=== PATIENT | male | born 1975 | race African-American/Black ===

== ENCOUNTER 2016-11-28 12:16 | Day surgery (SDC) | payer OTHER ==
[2016-11-28] MEDS ORDERED: Morphine Sulfate 2 MG/ML SYRINGE ONE (13:22)
[2016-11-28] MEDS ORDERED: Ondansetron HCl/PF 4 MG/2 ML Vial ONE ×2 (13:24→17:13)
[2016-11-28 13:47] LABS: Bilirubin Negative (Negative); Blood, Urine Negative (Negative); Glucose, Urine (Dipstick) Negative (Negative); Ketone, Urine 40 mg/dL (Negative); Nitrite Negative (Negative); Protein, Urine (Dipstick) Negative (Neg-Trace); Urobilinogen 0.2 mg/dL (0.2-1.0)
[2016-11-28 13:48] LABS: #Eosinphils 0.1 thou/uL (0.0-0.7); #Lymphocytes 1.5 thou/uL (1.20-3.40); #Monocytes 0.6 thou/uL (0.11-0.59); #Neutrophils 7.6 thou/uL (1.40-6.50); %Eosinophils 0.5 % (0.0-10.0); %Lymphocytes 15.1 % (21.0-51.0); %Monocytes 5.9 % (0.0-10.0); Hematocrit 49.5 % (42.0-52.0); Mean Platelet Volume 8.7 fL (7.4-10.4); Red Blood Cell (RBC) Count 5.58 mill/uL (4.70-6.10); White Blood Cell (WBC) Count 9.7 thou/uL (4.8-10.8)
[2016-11-28] MEDS ORDERED: ISOVUE-370 76%-LOCM 1 ML ONE (13:53)
--- NOTE | 2016-11-28 14:02 | CT ---
CT ABDOMEN AND PELVIS WITH IV CONTRAST: 11/28/2016 HISTORY: Abdominal distention and constipation. Epigastric pain. COMPARISON: 01/02/2007 FINDINGS: There is a wedge-shaped parenchymal density seen at the right lung base, which measures approximatel y 60 mm x 9 mm. This could be related to either atelectasis or a focal area of pneumonitis. The gallbladder is mildly distended, and there is suggestion of gallbladder edema or adjacent perich olecystic fluid. Adjacent to the gallbladder, there do appear to be mild inflammatory changes. The liver, spleen, pancreas, bilateral adrenal glands, and left kidney demonstrate a normal CT appea terrie. There are a few linear hypodensities seen within the mid portion of the right kidney, likely related to areas of mild scarring. The urinary bladder is normal in appearance. Surgical clips are seen in the right lower quadrant. There is a small amount of free fluid in the pelvis, which is abnormal in a male patient. IMPRESSION: 1. Mild distention of the gallbladder with suggestion of a tiny amount of pericholecystic fluid, an d there is also mild increased density in the gallbladder, which may be related to a gallbladder tomasz led with sludge and/or gallbladder calculi. There are adjacent minimal inflammatory changes. In th e correct clinical scenario, findings could be related to cholecystitis. 2. Linear areas of scarring in the right kidney. 3. Wedge shaped parenchymal density, right lung base, which could be related to focal area of atele ctasis or pneumonitis. 4. Right upper quadrant ultrasound may be helpful for further evaluation of the gallbladder. POS: DARYA
[2016-11-28 14:19] LABS: ALT (SGPT) 14 U/L (8-55); AST (SGOT) 16 U/L (5-34); Alkaline Phosphatase 59 U/L (40-150); Anion Gap 16 mmol/L (10-20); BUN (Urea Nitrogen) 8 mg/dL (8.9-20.6); Bilirubin, Total 0.8 mg/dL (0.2-1.2); Calc. Creatinine Clearance 0 mL/min (70-130); Calcium 9.1 mg/dL (7.8-10.44); Carbon Dioxide 22 mmol/L (22-29); Chloride 101 mmol/L (98-107); Estimated GFR-MDRD Greater than 90; Globulin 3.8 g/dL (2.4-3.5); Lipase 13 U/L (8-78); Protein, Total 8.1 g/dL (6.0-8.3)
[2016-11-28] MEDS ORDERED: metroNIDAZOLE 500 MG/100 ML BAG ONE (15:03)
--- NOTE | 2016-11-28 15:27 | ULT ---
ULTRASOUND GALLBLADDER RIGHT UPPER QUADRANT: HISTORY: Right upper quadrant pain. Abnormal CT examination. COMPARISON: CT abdomen and pelvis 11/28/16. FINDINGS: There is abnormal wall thickening in the gallbladder measuring up to 1.2 cm. Sonographic Chavez's s ign is positive. There is inflammation in the surrounding fat. Hepatic echotexture is otherwise normal. Main portable vein is patent with antegrade flow. The com mon duct measures 4 mm. There is internal cholelithiasis. The right kidney measures 10.7 x 5.6 x 6.7 cm. IMPRESSION: Ultrasonographic evidence of acute cholecystitis. Ordering provider, Lynne Beard, notified of findings via telephone at 3:12 p.m. CODE CR POS: DARYA
[2016-11-28] MEDS ORDERED: Lidocaine 2% w/Epinephrine 1:200K 20 ML VIAL ONE (16:14)
[2016-11-28] MEDS ORDERED: Bupivacaine 0.25% HCL 30 ML VIAL ONE (16:14)
[2016-11-28] MEDS ORDERED: Midazolam HCl 2 mg/2 ml Vial ONE (16:47)
[2016-11-28] MEDS ORDERED: Fentanyl 250 MCG/5 ML VIAL ONE (16:47)
[2016-11-28] MEDS ORDERED: Ketorolac Tromethamine 30 MG/ML VIAL ONE (17:13)
[2016-11-28] MEDS ORDERED: Glycopyrrolate 0.2 MG/ML 5 ML SYRINGE ONE (17:13)
[2016-11-28] MEDS ORDERED: Lidocaine 2% PF 10 ML AMP (For Epidural Use) ONE (17:13)
[2016-11-28] MEDS ORDERED: PHENYLEPHRINE-NS 100 MCG/ML 10 ML SYRINGE ONE (17:13)
[2016-11-28] MEDS ORDERED: Propofol 200 MG/20 ML VIAL ONE (17:13)
[2016-11-28] MEDS ORDERED: Promethazine HCl 25 MG/ML VIAL SLOW IVP PRN (19:01)
[2016-11-28] MEDS ORDERED: Ondansetron HCl/PF 4 MG/2 ML Vial IVP PRN (19:01)
[2016-11-28] MEDS ORDERED: Promethazine HCl 25 MG/ML VIAL IM PRN (19:01)
--- NOTE | 2016-11-29 20:35 | PDOC.OP ---
Operative Note - Operative Note Operative Note: PROCEDURE: Laparoscopic cholecystectomy SURGEON: Abby Silverman M.D. DATE OF PROCEDURE: 11/28/2016 PREOPERATIVE DIAGNOSIS: Cholelithiasis and cholecystitis POSTOPERATIVE DIAGNOSIS: Cholelithiasis and cholecystitis HISTORY: Patient with several days of persistent epigastric and right upper quadrant pain and findings of cholelithiasis and acute cholecystitis on imaging. , Bile duct was normal caliber and LFTs were normal. Recommendation was made to proceed with laparoscopic cholecystectomy for symptomatic relief. FINDINGS: Distended thick-walled acutely inflamed gallbladder containing multiple stones. Small caliber cystic duct. PROCEDURE IN DETAIL: After informed consent was obtained and appropriate preoperative antibiotics were administered, the patient was taken to the operating room and placed in the supine position and general endotracheal anesthesia was administered. The stomach was decompressed with an OG tube and the abdomen was prepped and draped in standard sterile fashion. Local anesthesia was infused to the skin and subcutaneous tissues at the umbilical level. A transverse skin incision was made. The fascia was elevated and a Veress needle was placed into the abdominal cavity without difficulty. Opening pressure was less than 5 and carbon dioxide gas easily insufflated to an intra- abdominal pressure of 15, which the patient tolerated well. The Veress needle was withdrawn and a [place] port advanced under direct vision. The abdominal cavity was carefully examined. There was no evidence of Veress needle or of trocar injury. Local anesthesia was infused to the skin and subcutaneous tissues at the epigastric, right upper quadrant, and right lateral abdominal sites and trocars were placed under direct vision of the laparoscope. The fundus of the gallbladder was edematous and thick and too distended to grasp. The gallbladder was aspirated with removal of 20 mL's of bile following which the fundus was soft enough to grasp and retract superiorly. The infundibulum was grasped and retracted laterally, also with some difficulty due to the thick- walled nature of the gallbladder wall. The serosa was stripped inferiorly at the level of the neck of the gallbladder exposing the cystic duct and artery which were traced clearly to their insertion in the gallbladder. The cystic duct was very small caliber but no stones were palpable within the cystic duct. Critical view of safety was obtained and the cystic duct and artery were clipped and divided between clips. The gallbladder was then dissected free of the gallbladder bed using hook electrocautery. During this process, the gallbladder was entered and some bile spilled as well as some small gallstones but these were able to be retrieved. Prior to complete removal of the gallbladder from the gallbladder bed, the area of the cystic duct and artery stumps was examined. The clips were in good position completely across these structures and there was no bleeding and no leakage of bile. The gallbladder was then placed into an EndoCatch bag and drawn out through the epigastric incision. This required dilating the epigastric fascial incision and extending the skin incision to allow the thickened gallbladder wall to be drawn out through the epigastric incision. In addition multiple small stones and the remainder of the bile within the gallbladder were also suctioned out to allow the gallbladder to be removed. The epigastric trocar was replaced and the operative site easily irrigated to clear. There was no significant bleeding. The epigastric trocar was removed and the fascia closed under direct laparoscopic vision with a 0 Vicryl suture on a GraNee needle in a figure-of- eight manner with excellent technical result. The right upper quadrant and right lateral abdominal trocars were removed and hemostasis verified. Carbon dioxide gas was allowed to desufflate through the umbilical trocar which was then removed. The skin incisions were closed with 4-0 subcuticular Monocryl sutures and Dermabond dressings were placed. The patient was extubated and taken to the recovery room in good condition. There were no complications. ESTIMATED BLOOD LOSS: Minimal. SPECIMEN : Gallbladder and contents.
== END 2016-11-28 20:27 | disposition home or self-care (01) ==
LOC: ERS 12:16 → SDC 15:35
PROVIDERS: ATTEND Surgery
PROC: 0FT44ZZ Resection of Gallbladder, Percutaneous Endoscopic Approach (ICD-10-PCS; principal; 2016-11-28)
DX: K80.00 Calculus of gallbladder with acute cholecystitis without obstruction (principal); I10 Essential (primary) hypertension
CPT/HCPCS: 36415; 74177; 76705; 83690; 88304; J0744; J1885; J2001; J2250; J2270; J2405; J2704; J3010; S0020